=== PATIENT | male | born 1985 | race Two or more races ===

== ENCOUNTER 2025-05-04 11:08 | Emergency (ER) | payer SELFPAY ==
[~2025-05-04] VITALS: Ht 185.4 cm; Wt 100.0 kg
[2025-05-04 11:11] VITALS: BP 144/90; PULSE 99; RESP 18; TEMP 36.6; O2SAT 97
[2025-05-04] MEDS: KETOROLAC 30MG/ML VIAL IM ONE (11:35)
== END 2025-05-04 12:16 ==
LOC: ER 11:20
DX: S09.8XXA Other specified injuries of head, initial encounter (principal); R51.9 Headache, unspecified; R42 Dizziness and giddiness; Z65.3 Problems related to other legal circumstances; X58.XXXA Exposure to other specified factors, initial encounter; Y93.89 Activity, other specified; Y92.89 Other specified places as the place of occurrence of the external cause; Y99.8 Other external cause status
CPT/HCPCS: 99285; 70450; 96372; J1885